=== PATIENT | male | born 1940 | race Caucasian/White ===

== ENCOUNTER 2019-09-10 07:36 | Emergency (ER) | payer MEDICARE, SELFPAY ==
[2019-09-10 07:37] VITALS: BP 150/81; PULSE 79; RESP 9; TEMP 36; O2SAT 96
--- NOTE | 2019-09-10 07:43 | ED_ITS ---
HPI - General Adult General Chief complaint: Neuro Symptoms/Deficit Stated complaint: possible stroke happening now Time Seen by Provider: 09/10/19 07:40 Source: family () Mode of arrival: Wheelchair Limitations: altered mental status History of Present Illness HPI narrative: 79-year-old male on Coumadin. Earlier this year he had a TAVR and has a pacemaker in place secondary to atrial fibrillation here for ev aluation of a possible stroke. Patient's states that last night he went to bed sometime between 2200 and 2230 hours. Patient's states he was exhibiting no symptoms of that time. They're here visiting. His states that he woke up this morning to take the dog out to go to the bathroom. When he returned she states that he was having problems speaking. That was just prior to arrival. She stated that he wanted to go back to bed however she thought the ER to be evaluated. The time my evaluation patient unable to provide any HPI. Is only response was ?yes? Related Data Allergies Allergy/AdvReac Type Severity Reaction Status Date / Time iodine Allergy Verified 09/10/19 08:01 Review of Systems Review of Systems ROS Unobtainable: Unobtainable due to mental status/LOC Patient History Medical History Afib (Acute) Hypertension (Acute) Surgical History S/P TAVR (transcatheter aortic valve replacement) (Acute) Social History Smoking Status: Never smoker Exam Initial Vital Signs Initial Vital Signs: Vital Signs Temperature 96.8 F L 09/10/19 07:37 Pulse Rate 79 09/10/19 07:37 Respiratory Rate 9 L 09/10/19 07:37 Blood Pressure 150/81 H 09/10/19 07:37 Pulse Oximetry 96 09/10/19 07:37 Const General: comfortable, well developed and well groomed Orientation: awake Limitations: altered mental status HENMT Head: normal to inspection and normocephalic Eyes Pupils: PERRL Neck Neck: normal visual inspection Resp Effort & Inspection: normal respiratory effort Auscultation: clear to auscultation bilaterally Cardio Rate: regular rate Heart Sounds: murmur Pulses: radial pulses present GI Inspection: non-distended Palpation: soft Skin Lesions: no lesions Rashes: no rashes Neuro General: awake Cognition: abnormal cognition Other: Patient would only answer ?yes? when asked questions. He does seem to have a right-sided neglect. He did squeeze with his left hand. Had a twinge of a movement when asked to wiggle his left foot. No movement of the right upper extremity or the right lower extremity. Extrem General: normal to inspection and capillary refill normal Psych Appearance: well kempt Scores GCS [place] coma scale eye opening: Spontaneous Susanne coma scale verbal response: Words [place] coma scale motor response: Obey commands Susanne coma scale total score: 13 Course Orders Ordered: ED Orders 09/10/19 07:41 CT head/brain wo con Stat EKG-12 Lead Stat 09/10/19 07:50 Complete Blood Count AUTO DIFF Stat Comprehensive Metabolic Panel Stat Lipase Stat Partial Thromboplastin Time Stat Procalcitonin Stat Prothrombin Time INR Stat Troponin I Stat Discontinued Medications Phytonadione 10 mg/ Dextrose 51 mls @ 102 mls/hr IV NOW ONE Stop: 09/10/19 08:03 Last Admin: 09/10/19 08:17 Dose: 102 mls/hr Documented by: HITESH Prothrombin Complex Concent ( Human) 2,500 unit/Miscellaneous 100 mls @ 640.8 mls/hr IV NOW ONE; Protocol Stop: 09/10/19 08:21 Last Admin: 09/10/19 08:41 Dose: 3 unit/kg/min, 640.8 mls/hr Documented by: HITESH Vital Signs Vital signs: Vital Signs - 8 hr 09/10/19 07:37 09/10/19 08:11 09/10/19 08:26 Temperature 96.8 F L Pulse Rate 79 58 L 79 Respiratory Rate 9 L 12 14 Blood Pressure 150/81 H Blood Pressure [Left Arm] 129/73 140/70 Pulse Oximetry 96 97 98 09/10/19 08:37 Temperature Pulse Rate 80 Respiratory Rate 20 Blood Pressure Blood Pressure [Left Arm] 141/77 H Pulse Oximetry 97 Medical Decision Making Lab Data Lab results reviewed: Yes I reviewed the patient's lab results. Result diagrams: 09/10/19 07:50 09/10/19 07:50 Labs: Lab Results 09/10/19 09/10/19 09/10/19 Range/Units 07:50 07:50 07:50 WBC 5.1 (4.5-11.0) X10^3/uL RBC 4.80 (4.5-5.9) X10^6/uL Hgb 15.0 (13.5-17.5) g/dL Hct 43.7 (41-53) % MCV 91.0 (80-100) fL MCH 31.3 (26-34) PG MCHC 34.4 (30-36) % RDW 14.5 (11.6-14.8) % Plt Count 107 L (150-400) X10^3/uL Neut % (Auto) 59.9 (50-75) % Lymph % (Auto) 26.8 (25-40) % Worth % (Auto) 10.4 (3-14) % Eos % (Auto) 2.2 (2-4) % Baso % (Auto) 0.7 (0-2) % Neut # (Auto) 3100 (8438-2539) /uL Lymph # (Auto) 1400 (3161-0584) /uL Worth # (Auto) 500 (0-900) /uL Eos # (Auto) 100 (0-450) /uL Baso # (Auto) 0 (0-100) /uL PT 31.1 H (10.1-12.7) SECONDS INR 2.7 H (0.9-1.3) APTT 41 H (26.4-36.2) SECONDS Sodium 139 (137-145) mmol/L Potassium 3.6 (3.4-5.1) mmol/L Chloride 107 (98-107) mmol/L Carbon Dioxide 29 (22-32) mmol/L BUN 16 (9-20) mg/dL Creatinine 0.90 (0.66-1.25) mg/dL Estimated GFR > 60.0 (>60) mL/min BUN/Creatinine Ratio 17.8 (6-22) Glucose 118 H (80-110) mg/dL Calcium 8.9 (8.4-10.2) mg/dL Total Bilirubin 1.2 (0.2-1.3) mg/dL AST 34 (17-59) IU/L ALT 21 (<50) IU/L Alkaline Phosphatase 68 (38-126) U/L Troponin I < 0.012 (0.01-0.034) ng/mL Total Protein 6.2 L (6.3-8.2) g/dL Albumin 3.7 (3.5-5.0) g/dL Globulin 2.5 (1.7-4.1) g/dL Albumin/Globulin Ratio 1.5 (1.0-2.8) Lipase 61 (23-300) U/L Procalcitonin (<0.5) ng/mL 09/10/19 Range/Units 07:50 WBC (4.5-11.0) X10^3/uL RBC (4.5-5.9) X10^6/uL Hgb (13.5-17.5) g/dL Hct (41-53) % MCV (80-100) fL MCH (26-34) PG MCHC (30-36) % RDW (11.6-14.8) % Plt Count (150-400) X10^3/uL Neut % (Auto) (50-75) % Lymph % (Auto) (25-40) % Worth % (Auto) (3-14) % Eos % (Auto) (2-4) % Baso % (Auto) (0-2) % Neut # (Auto) (3401-1896) /uL Lymph # (Auto) (9321-3183) /uL Worth # (Auto) (0-900) /uL Eos # (Auto) (0-450) /uL Baso # (Auto) (0-100) /uL PT (10.1-12.7) SECONDS INR (0.9-1.3) APTT (26.4-36.2) SECONDS Sodium (137-145) mmol/L Potassium (3.4-5.1) mmol/L Chloride (98-107) mmol/L Carbon Dioxide (22-32) mmol/L BUN (9-20) mg/dL Creatinine (0.66-1.25) mg/dL Estimated GFR (>60) mL/min BUN/Creatinine Ratio (6-22) Glucose (80-110) mg/dL Calcium (8.4-10.2) mg/dL Total Bilirubin (0.2-1.3) mg/dL AST (17-59) IU/L ALT (<50) IU/L Alkaline Phosphatase (38-126) U/L Troponin I (0.01-0.034) ng/mL Total Protein (6.3-8.2) g/dL Albumin (3.5-5.0) g/dL Globulin (1.7-4.1) g/dL Albumin/Globulin Ratio (1.0-2.8) Lipase (23-300) U/L Procalcitonin < 0.05 (<0.5) ng/mL Imaging Data CT scan - head: Radiologist's Impression: [place] [address] CT Scan Report Signed Patient: Beau MuñizMR#: [id number] : 9Acct:[id number] Age/Sex: 79 / MDate of Service: 09/10/19 Loc: ED Accession Number: [id number] Procedure: CT head/brain wo con Ordering Provider: Vinay Steiner D.O. PROCEDURE: CT HEAD/BRAIN WO CON INDICATIONS: Code stroke non tpa, on blood thinners TECHNIQUE: Noncontrast 4.5 mm thick angled axial sections acquired from the foramen magnum to the vertex, with coronal and sagittal reformats. For radiation dose reduction, the following was used: automated exposure control, adjustment of mA and/or kV according to patient size. COMPARISON: None. FINDINGS: Image quality: Excellent. CSF spaces: No extra-axial fluid collections. . Brain: There is a large amount of intraparenchymal hemorrhage seen, which is centered within the lateral aspect of the left posterior frontal lobe, and also involving the left temporal lobe and a portion of the insula. This hemorrhage measures 6.2 x 4.3 x 5.7 cm. There is associated midline shift seen, measuring 5 mm. The basal cisterns remain patent, yet the left basal cistern is narrowed. No herniation at this time. There is minimal narrowing seen of the left lateral ventricle. There is cerebral volume loss for age, with resultant ventricular and sulcal prominence. There are periventricular and deep white matter chronic small vessel ischemic changes. There is intracranial internal carotid artery atherosclerosis. Skull and face: Calvarium and visualized facial bones appear intact, without suspicious lesions. Sinuses: Visualized sinuses and mastoids are clear. IMPRESSION: There is a large amount of intraparenchymal hemorrhage seen within the left cerebral hemisphere. There is associated mass effect, including midline shift of 5 mm. Note: critical findings discussed by telephone with Dr. Steiner at 8:18 AM [place] time on 09/10/19. Dictated by: Levar Ashford M.D. on 09/10/2019 at 7:17 Approved by: Levar Ashford M.D. on 09/10/2019 at 7:23 ECG Data Attestation: I personally reviewed and interpreted this ECG as follows: Prior ECG tracings: not available for review Interpretation: Atrially paced Ventricular rate is 73 Normal axis Normal QRS Normal QTC Nonspecific ST T wave changes MDM Narrative Medical decision making narrative: Patient is maintaining his airway. Blood pressure improved to a systolic in the 120s without any intervention here in the ER. His INR was 2.7. He was given 10 mg of vitamin K IV. Kcentra ordered. Head CT shows left-sided head bleed. Discussed the case with Dr. Marroquin with the stroke team at [facility]. Will send by airlift. Patient is stable for transfer. We did discuss the transfer with the patient's . They expressed understanding and agreement. Critical Care Time Critical Care Time Critical Care Time: Yes Total Critical Care Time: 40 Attestation: The high probability of a clinically significant, sudden or life threatening deterioration of the neurologic system(s) required my full and direct attention, intervention and personal management. The aggregate critical care time was 40 minutes. This time is in addition to time spent performing reported procedures but includes the following: [] Data Review and interpretation [] Patient assessment and monitoring of vital signs [] Documentation [] Medication orders and management Discharge Plan Departure Patient Disposition: [facility] Clinical Impression: Intracerebral hemorrhage Qualifiers: Intracerebral hemorrhage etiology: nontraumatic Cerebral hemorrhage location: unspecified cerebral location Laterality: left Qualified Code(s): I61.9 - Nontraumatic intracerebral hemorrhage, unspecified
[2019-09-10 07:45] VITALS: BP 150/81; PULSE 77; RESP 9
[2019-09-10 08:00] LABS: Add Manual Diff / Slide Review NO; Basophils Absolute Auto 0 /uL (0-100); Basophils Percent Auto 0.7 % (0-2); Eosinophils Absolute Auto 100 /uL (0-450); Eosinophils Percent Auto 2.2 % (2-4); Hematocrit 43.7 % (41-53); Lymphocytes Absolute Auto 1400 /uL (1100-4500); Lymphocytes Percent Auto 26.8 % (25-40); Mean Corpuscular HGB Conc 34.4 % (30-36); Mean Corpuscular Hemoglobin 31.3 PG (26-34); Monocytes Absolute Auto 500 /uL (0-900); Monocytes Percent Auto 10.4 % (3-14); Neutrophils Absolute Auto 3100 /uL (1500-7000); Neutrophils Percent Auto 59.9 % (50-75); Platelet Count 107 X10^3/uL (150-400); Red Cell Distribution Width 14.5 % (11.6-14.8); White Blood Cell Count 5.1 X10^3/uL (4.5-11.0)
[2019-09-10 08:03] LABS: INR 2.7 (0.9-1.3); Prothrombin Time 31.1 SECONDS (10.1-12.7)
[2019-09-10 08:06] LABS: PTT Partial Thromboplastin Tim 41 SECONDS (26.4-36.2)
[2019-09-10 08:07] LABS: Alanine Aminotransferase 21 IU/L (<50); Albumin 3.7 g/dL (3.5-5.0); Albumin Globulin Ratio 1.5 (1.0-2.8); Alkaline Phosphatase 68 U/L (38-126); Aspartate Aminotransferase 34 IU/L (17-59); BUN Creatinine Ratio 17.8 (6-22); Bilirubin Total 1.2 mg/dL (0.2-1.3); Blood Urea Nitrogen 16 mg/dL (9-20); Calcium 8.9 mg/dL (8.4-10.2); Carbon Dioxide 29 mmol/L (22-32); Chloride 107 mmol/L (98-107); Estimated Glomerular Filt Rate > 60.0 mL/min (>60); Globulin 2.5 g/dL (1.7-4.1); Glucose 118 mg/dL (80-110); HEMOLYSIS < 15 (0-50); Lipase 61 U/L (23-300); Potassium 3.6 mmol/L (3.4-5.1); Sodium 139 mmol/L (137-145); Total Protein 6.2 g/dL (6.3-8.2)
[2019-09-10 08:11] VITALS: BP 129/73; PULSE 58; RESP 12; O2SAT 97
[2019-09-10] MEDS: PHYTONADIONE (VIT K1) 10 MG in DEXTROSE 5 % IN WATER 50 ML 102 ML IV (08:17)
[2019-09-10 08:19] LABS: Troponin I < 0.012 ng/mL (0.01-0.034)
[2019-09-10 08:26] VITALS: BP 140/70; PULSE 79; RESP 14; O2SAT 98
[2019-09-10 08:26] LABS: Procalcitonin < 0.05 ng/mL (<0.5)
[2019-09-10 08:37] VITALS: BP 141/77; PULSE 80; RESP 20; O2SAT 97
[2019-09-10] MEDS: PROTHROMBIN CPLX(PCC)4FACT 2,500 UNIT in ISOOSMOTIC VEHICLE 0 ML 640.8 ML IV (08:41)
[2019-09-10 08:45] VITALS: BP 141/57; PULSE 70; RESP 18; O2SAT 95
== END 2019-09-10 09:02 | disposition short-term general hospital (02) ==
PROVIDERS: Emergency Provider Emergency Medicine
DX: I61.9 Nontraumatic intracerebral hemorrhage, unspecified (principal); Z79.01 Long term (current) use of anticoagulants
CPT/HCPCS: 36415; 70450; 80053; 83690; 84145; 84484; 85025; 85610; 85730; 93005; 96365; 99284; 99291; C9132; J3430